=== PATIENT | male | born 2000 ===

== ENCOUNTER → 2023-04-01 | Outpatient (CLI) | payer OTHER ==
[2023-04-01 11:09] LABS: Source, Urine Clean Catch
[2023-04-01 11:14] LABS: Bacteria Not Seen /hpf; Red Blood Cells, Urine Not Seen /hpf (0-2); Squamous Epithelial Cells Rare /hpf (Few); White Blood Cells, Urine Not Seen /hpf (0-5)
== END | disposition home or self-care (01) ==
LOC: LAB SHORT 11:07 → LAB 11:07
PROVIDERS: Emergency Medicine
DX: R39.198 Other difficulties with micturition (principal)
CPT/HCPCS: 81015